=== PATIENT | male | born 1960 | race Caucasian/White ===

== ENCOUNTER 2021-03-09 11:06 | Emergency (ER) | payer OTHER ==
[2021-03-09] MEDS ORDERED: LIDOCAINE 4% PATCH ONE (12:23)
[2021-03-09] MEDS ORDERED: MORPHINE 4 MG/ML SYR ONE (12:23)
[2021-03-09 12:38] LABS: Urine Blood Negative (Negative); Urine Glucose Negative (Negative); Urine Protein Trace (Negative)
[2021-03-09 13:05] LABS: Urine Bacteria NONE SEEN /HPF (NONE SEEN); Urine RBC <5 /HPF (NONE SEEN)
--- NOTE | 2021-03-09 13:22 | RAD REPORT ---
EXAM DESCRIPTION: CTSpine Lumbar Wo Con03/09/2021 1:06 pm CLINICAL HISTORY: Back pain and radiculopathy COMPARISON: None TECHNIQUE: Computed axial tomography lumbar spine was obtained with coronal and sagittal reconstruct ion. All CT scans are performed using dose optimization technique as appropriate and may include automated exposure control or mA/KV adjustment according to patient size. FINDINGS: No fracture is seen. No dislocation is noted. A small right lateral disc bulge L2-3. Moderate disc bulge L2-3 more prominent right laterally results in narrowing of the right neural fora yvonne. Thecal sac measures 9.5 millimeters. Mild spondylosis L3-4. Facet hypertrophy L4-5. This in combination with disc bulge result in mild to moderate narrowing of n eural foramina. Thecal sac measures 9 millimeters. Mild spondylosis L5-S1. No bony lesion IMPRESSION: Negative for a lumbar fracture. Spondylosis resulting in mild to moderate foraminal stenosis L4-5. If patient's symptoms persist MRI lumbar spine would be recommended
--- NOTE | 2021-03-09 14:06 | EDPHYS ---
Physician Documentation [facility] Name: John Green Age: 60 yrs Sex: Male : 1960 Arrival Date: 03/09/2021 Time: 11:08 Bed 16 Private MD: ED Physician Joe Quintanilla HPI: 03/09 12:30 This 60 yrs old Male presents to ER via Wheelchair with complaints of Leg Pain - W/ cp Numbness. Historical: - Allergies: 11:36 No Known Allergies; vg1 - Home Meds: 11:36 citalopram oral [Active]; Lexapro Oral [Active]; vg1 - PMHx: 11:36 Hypertensive disorder; Depressive disorder; vg1 - PSHx: 11:36 None; vg1 - Immunization history:: Client reports having NOT received the Covid vaccine. - Social history:: Smoking status: Patient reports the use of cigarette tobacco products, smokes one pack cigarettes per day. ROS: 12:35 Back: Positive for pain at rest, pain with movement, of the left low back. cp 12:35 Eyes: Negative for injury, pain, redness, and discharge. cp 12:35 Constitutional: Negative for body aches, chills, fever, poor PO intake. 12:35 Cardiovascular: Negative for chest pain, edema, palpitations. 12:35 Respiratory: Negative for cough, shortness of breath, wheezing. Exam: 12:40 Constitutional: The patient appears in no acute distress, alert, awake, non-toxic, well cp developed, well nourished, uncomfortable. 12:40 Head/Face: Normocephalic, atraumatic. cp 12:40 Eyes: Periorbital structures: appear normal, Conjunctiva: normal, no exudate, no cp injection, Sclera: no appreciated abnormality, Lids and lashes: appear normal, bilaterally. 12:40 Chest/axilla: Inspection: normal. 12:40 Cardiovascular: Rate: normal. 12:40 Respiratory: the patient does not display signs of respiratory distress, Respirations: normal, no use of accessory muscles, no retractions, labored breathing, is not present. 12:40 Abdomen/GI: Inspection: abdomen appears normal, Palpation: abdomen is soft and non-tender, in all quadrants. 12:40 Back: pain, that is moderate, of the left low back and left mid back, ROM is painful, with all movement, vertebral tenderness, is not appreciated, muscle spasm, is not present, Straight leg raises: of both lower extremities does not illicit pain. 12:40 Neuro: Orientation: to person, place \T\ time. Mentation: is normal, Motor: moves all fours, strength is normal, Sensation: light touch is decreased in the left lateral upper leg, Deep tendon reflexes are 2+ (normal) in the right patellar, right Achilles, left patellar and left Achilles. Vital Signs: 11:35 BP 168 / 99; Pulse 94; Resp 16; Temp 98.5; Pulse Ox 100% ; Weight 84.82 kg; Height 5 vg1 ft. 8 in. (172.72 cm); Pain 10/10; 11:35 Body Mass Index 28.43 (84.82 kg, 172.72 cm) vg1 MDM: 11:52 Patient medically screened. cp 14:05 Data reviewed: vital signs, nurses notes, lab test result(s), radiologic studies, CT cp scan. 03/09 12:21 Order name: Urine Microscopic Only; Complete Time: 13:11 cp 03/09 13:11 Interpretation: Reviewed. 03/09 12:38 Order name: Urine Dipstick-Ancillary; Complete Time: 12:51 EDHI 03/09 13:11 Interpretation: Normal except: UPROT Trace. 03/09 12:21 Order name: Urine Dipstick-Ancillary (obtain specimen); Complete Time: 12:36 cp 03/09 12:52 Order name: CT Lumbar Spine Wo Con; Complete Time: 13:24 cp 03/09 13:25 Interpretation: Report reviewed. cp Administered Medications: 12:33 Drug: morphine 4 mg Route: IM; Site: left deltoid; aj1 12:33 Drug: Lidoderm Patch 5 % (700 mg/patch) 1 patches Route: Topical; Site: affected area; aj1 Disposition Summary: 03/09/21 14:06 Discharge Ordered Location: Home cp Problem: new cp Symptoms: have improved cp Condition: Stable cp Diagnosis - Lumbago with sciatica, left side cp Followup: cp - With: Private Physician - When: 2 - 3 days - Reason: Recheck today's complaints Discharge Instructions: - Discharge Summary Sheet cp - Sciatica cp Forms: - Medication Reconciliation Form cp - Thank You Letter cp - Antibiotic Education cp - Prescription Opioid Use cp Prescriptions: - Lidoderm 5 % Topical adhesive patch,medicated - apply 1 patch by TOPICAL route once daily; 1 box; Refills: 0, Product Selection cp Permitted - Cyclobenzaprine 10 mg Oral Tablet - take 1 tablet by ORAL route every 8 hours As needed; 30 tablet; Refills: 0, cp Product Selection Permitted - Tramadol 50 mg Oral Tablet - take 1 tablet by ORAL route every 8 hours as needed; 12 tablet; Refills: 0, cp Product Selection Permitted - Medrol (Shon) 4 mg Oral Tablets, Dose Pack - take 1 tablet by ORAL route as directed - follow package instructions; 1 cp packet; Refills: 0, Product Selection Permitted Signatures: Dispatcher [employer] Rosemary Romero, RN RN aj1 Be Verma PA PA cp Garcia, Victoria RN RN vg1
--- NOTE | 2021-03-09 14:06 | ER ---
Nurse's Notes [facility] Name: John Green Age: 60 yrs Sex: Male : 1960 Arrival Date: 03/09/2021 Time: 11:08 Bed 16 Private MD: Diagnosis: Lumbago with sciatica, left side Presentation: 03/09 11:35 Chief complaint: Patient states: For about two days pt states left lower back pain that vg1 radiates to Left hip an left thigh; states left calf 'feels numb'. Denies in injuries. Coronavirus screen: Vaccine status: Patient reports being unvaccinated. Client denies travel out of the [place] in the last 14 days. Ebola Screen: Patient negative for fever greater than or equal to 101.5 degrees Fahrenheit, and additional compatible Ebola Virus Disease symptoms. Initial Sepsis Screen: Does the patient meet any 2 criteria? No. Patient's initial sepsis screen is negative. Does the patient have a suspected source of infection? No. Patient's initial sepsis screen is negative. Risk Assessment: Do you want to hurt yourself or someone else? Patient reports no desire to harm self or others. Onset of symptoms was March 07, 2021. 11:35 Method Of Arrival: Wheelchair vg1 11:35 Acuity: GAURAV 3 vg1 Triage Assessment: 11:36 General: Appears in no apparent distress. uncomfortable, Behavior is calm, cooperative. vg1 Pain: Complains of pain in left low back and left leg. Historical: - Allergies: 11:36 No Known Allergies; vg1 - Home Meds: 11:36 citalopram oral [Active]; Lexapro Oral [Active]; vg1 - PMHx: 11:36 Hypertensive disorder; Depressive disorder; vg1 - PSHx: 11:36 None; vg1 - Immunization history:: Client reports having NOT received the Covid vaccine. - Social history:: Smoking status: Patient reports the use of cigarette tobacco products, smokes one pack cigarettes per day. Screenin:34 Abuse screen: Denies threats or abuse. Denies injuries from another. Nutritional aj1 screening: No deficits noted. Tuberculosis screening: No symptoms or risk factors identified. Assessment: 12:34 General: Appears in no apparent distress. uncomfortable, Behavior is calm, cooperative, aj1 appropriate for age. Pain: Complains of pain in left low back Pain radiates to left leg Pain currently is 10 out of 10 on a pain scale. Neuro: Level of Consciousness is awake, alert, obeys commands. Cardiovascular: Patient's skin is warm and dry. Respiratory: Airway is patent Respiratory effort is even, unlabored, Respiratory pattern is regular, symmetrical. GI: No signs and/or symptoms were reported involving the gastrointestinal system. : No signs and/or symptoms were reported regarding the genitourinary system. EENT: No signs and/or symptoms were reported regarding the EENT system. Derm: No signs and/or symptoms reported regarding the dermatologic system. Skin is pink, warm \T\ dry. normal. 14:21 Reassessment: Patient appears in no apparent distress at this time. Patient and/or vg1 family updated on plan of care and expected duration. Pain level reassessed. Patient is alert, oriented x 3, equal unlabored respirations, skin warm/dry/pink. Vital Signs: 11:35 BP 168 / 99; Pulse 94; Resp 16; Temp 98.5; Pulse Ox 100% ; Weight 84.82 kg; Height 5 vg1 ft. 8 in. (172.72 cm); Pain 10/10; 11:35 Body Mass Index 28.43 (84.82 kg, 172.72 cm) [facility] ED Course: 11:08 Patient arrived in ED. ds1 11:36 Triage completed. vg1 11:36 Arm band placed on. vg1 11:47 Be Verma PA is PHCP. cp 11:47 Joe Quintanilla MD is Attending Physician. cp 12:08 Rosemary Perez, SOCRATES is Primary Nurse. aj1 12:34 Patient has correct armband on for positive identification. Bed in low position. Call aj1 light in reach. Family at bedside. 12:34 No provider procedures requiring assistance completed. aj1 12:41 Pulse ox on. NIBP on. mh5 12:41 Urine Microscopic Only Sent. mh5 12:41 Urine collected: clean catch specimen, clear. mh5 13:06 CT Lumbar Spine Wo Con In Process Unspecified. EDMS 14:22 Patient did not have IV access during this emergency room visit. vg1 Administered Medications: 12:33 Drug: morphine 4 mg Route: IM; Site: left deltoid; aj1 12:33 Drug: Lidoderm Patch 5 % (700 mg/patch) 1 patches Route: Topical; Site: affected area; aj1 Outcome: 14:06 Discharge ordered by . cp 14:21 Discharged to home via wheelchair, with family. vg1 14:21 Condition: stable 14:21 Discharge instructions given to patient, Instructed on discharge instructions, follow up and referral plans. medication usage, Demonstrated understanding of instructions, follow-up care, medications, Prescriptions given X 4. 14:22 Patient left the ED. vg1 Signatures: Dispatcher [employer] EDRosemary Leiva, RN RN aj1 Gale Miller ds1 Be Verma PA PA cp Martinez, Maria Dori San, RN RN vg1
[2021-03-09 14:27] VITALS: BP 168/99; TEMP 98.5; O2SAT 100
== END 2021-03-09 14:22 | disposition home or self-care (01) ==
LOC: ER 11:06
DX: M54.42 Lumbago with sciatica, left side (principal); I10 Essential (primary) hypertension; F32.A Depression, unspecified; F17.210 Nicotine dependence, cigarettes, uncomplicated
CPT/HCPCS: 72131; 81003; 81015; 96372; 99284

== ENCOUNTER 2024-05-31 10:36 | Emergency (ER) | payer OTHER ==
[2024-05-31 11:45] LABS: Absolute Basophils 0.1 K/uL (0-0.5); Absolute Lymphocytes (CBC) 1.3 K/uL (0.7-4.9); Absolute Monocytes 0.6 K/uL (0.1-1.3); Absolute Neutrophil 6.6 K/uL (1.8-8.0); Basophils % 1.3 % (0-1.3); Eosinophils % 0.4 % (0-4.4); Hematocrit 29.9 % (39.6-49.0); Hemoglobin 10.2 g/dL (13.6-17.9); Lymphocytes % 15.4 % (15.3-44.8); MCH 33.9 pg (27.0-35.0); MCHC 34.2 g/dL (32.0-36.0); MCV 98.9 fL (80-100); MPV 8.1 fL (7.6-11.3); Neutrophils % 75.9 % (41.7-73.7); Nucleated Red Blood Cells % 0.1 % (0-0); Platelets 241 thou/uL (152-406); RBC Red Blood Cell Count 3.02 M/uL (4.33-5.43); Red Cell Distribution Width 20.2 % (12.1-15.2)
[2024-05-31 12:01] LABS: Albumin 2.5 g/dL (3.4-5.0); Albumin/Globulin Ratio 0.7 (1.1-1.8); Anion Gap 7.7 mEq/L (5.0-15.0); Bilirubin Total 1.5 mg/dL (0.2-1.0); Globulin 3.6 g/dL (2.3-3.5); Potassium 3.7 mEq/L (3.5-5.1); Protein, Total 6.1 g/dL (6.4-8.2)
[2024-05-31] MEDS ORDERED: FUROSEMIDE 40 MG/4 ML VIAL ONE (12:12)
--- NOTE | 2024-05-31 12:14 | EDPHYS ---
Physician Documentation [facility] Name: John Green Age: 63 yrs Sex: Male : 1960 Arrival Date: 05/31/2024 Time: 10:36 Bed 17 Private MD: ED Physician Octaviano Katz HPI: 05/31 11:03 This 63 yrs old Male presents to ER via Unassigned with complaints of Body ec2 swelling. 11:03 Patient with known liver disease, arrives today with lower extremity edema and ec2 generalized anasarca. Patient reports that he was told that he had alcoholic hepatitis, supposed to follow-up with GI. Has a plan to follow-up with primary care in 3 days. Reports that he had noticed lower extremity edema has been progressively worsening. Is not on a diuretic currently.. Historical: - Allergies: 11:24 No Known Allergies; hb - Home Meds: 11:24 losartan-hydrochlorothiazide oral [Active]; Lexapro Oral [Active]; hb - PMHx: 11:24 depressive disorder; Hypertensive disorder; hb 11:24 Alcoholic Cirrhosis; hb - Immunization history:: Adult Immunizations up to date. - Infectious Disease History:: Denies. - Social history:: Smoking status: Patient reports the use of cigarette tobacco products. ROS: 11:03 Constitutional: as per hpi ec2 Exam: 11:03 Constitutional: GEN: NAD Head: atraumatic Eyes: EOMI Ears: External ears are ec2 normal. CV: regular rate, 3+ lower extremity edema extending from the foot to the proximal tibia LUNGS: no respiratory distress ABD: non-distended SKIN: no evidence of rashes MSK: no evidence of trauma Vital Signs: 11:22 BP 160 / 107; Pulse 66; Resp 16; Temp 97.8; Pulse Ox 100% ; Weight 77.11 kg; Height 5 hb ft. 9 in. ; Pain 3/10; 12:15 BP 175 / 94; Pulse 78; Resp 16; Pulse Ox 98% ; mb9 11:22 Body Mass Index 25.10 (77.11 kg, 175.26 cm) hb 11:22 Pain Scale: Adult hb MDM: 10:55 Medical Screening Exam initiated ec2 11:03 Data reviewed: vital signs, nurses notes. ED course: Patient arrives today for ec2 anasarca. Examination yields cardiovascular findings as above. Will obtain lab work. Suspect sequela of his known liver disease. Patient without any abdominal pain to indicate SBP and patient otherwise nontoxic as well.. 11:05 ED course: Additionally considered volume overload secondary to CKD, CHF. ec2 12:13 ED course: CBC with slight anemia noted. Metabolic profile shows appropriate ec2 electrolytes, marked liver enzyme abnormality, BNP elevated at 970. Patient with outpatient follow-up with GI and PCP, will start the patient on Lasix for diuresis given the patient's volume overload, will discharge home. Turn precautions given. Patient does not require emergent admission for liver evaluation given he is already been evaluated for this, does not require admission for diuresis given patient is not in any respiratory distress. 05/31 11:03 Order name: CBC with Diff ec2 05/31 11:03 Order name: CMP; Complete Time: 12:12 ec2 05/31 11:05 Order name: BNP; Complete Time: 12:12 ec2 05/31 11:03 Order name: IV; Complete Time: 11:27 ec2 Administered Medications: 12:15 Drug: Furosemide IVP 40 mg IVP once; give over 2 minutes Route: IVP; Site: left forearm;mb9 12:31 Follow up: Response: No adverse reaction mb9 Disposition Summary: 05/31/24 12:14 Discharge Ordered Condition: Stable ec2 Diagnosis - Liver Disease, Volume Overload ec2 Followup: ec2 - With: Private Physician - When: - Reason: Re-evaluation by your physician Discharge Instructions: - Discharge Summary Sheet ec2 - Lymphedema ec2 - Alcoholic Liver Disease, [id number] ec2 Forms: - Medication Reconciliation Form ec2 - Antibiotic Education ec2 - Prescription Opioid Use ec2 - Patient Portal Instructions ec2 - Leadership Thank You Letter ec2 Prescriptions: - Lasix 40 mg Oral tablet - take 1 tablet ORAL route once daily for 30 days; 14 tablet; Refills: 0, Product ec2 Selection Permitted Signatures: Dispatcher [employer] Farnaz Forbes RN RN hb Wilkerson, Mary Beth RN RN mb9 Octaviano Katz MD MD ec2 Corrections: (The following items were deleted from the chart) : 11:24 PMHx: Alcoholic Cirrhosis (Hypertensive disorder); hb hb
--- NOTE | 2024-05-31 12:14 | ER ---
Nurse's Notes [facility] Name: John Green Age: 63 yrs Sex: Male : 1960 Arrival Date: 05/31/2024 Time: 10:36 Bed 17 [facility] MD: Diagnosis: Liver Disease, Volume Overload Presentation: 05/31 11:22 Chief complaint: Swelling all over and yellowing of skin over the last 2 weeks, worse hb today. Hx of alcoholic cirrhosis, last ETOH was 1 week ago. Coronavirus screen: At this time, the client does not indicate any symptoms associated with coronavirus-19. Ebola Screen: No symptoms or risks identified at this time. Initial Sepsis Screen: Does the patient meet any 2 criteria? No. Patient's initial sepsis screen is negative. Does the patient have a suspected source of infection? No. Patient's initial sepsis screen is negative. Risk Assessment: Do you want to hurt yourself or someone else?. Onset of symptoms was May 31, 2024. 11:22 Method Of Arrival: Ambulatory hb 11:22 Acuity: GAURAV 3 hb Historical: - Allergies: 11:24 No Known Allergies; hb - Home Meds: 11:24 losartan-hydrochlorothiazide oral [Active]; Lexapro Oral [Active]; hb - PMHx: 11:24 depressive disorder; Hypertensive disorder; hb 11:24 Alcoholic Cirrhosis; hb - Immunization history:: Adult Immunizations up to date. - Infectious Disease History:: Denies. - Social history:: Smoking status: Patient reports the use of cigarette tobacco products. Screenin:27 [facility] ED Fall Risk Assessment (Adult) History of falling in the last 3 months, mb9 including since admission No falls in past 3 months (0 pts) Confusion or Disorientation No (0 pts) Intoxicated or Sedated No (0 pts) Impaired Gait No (0 pts) Mobility Assist Device Used No (0 pt) Altered Elimination No (0 pt) Score/Fall Risk Level 0 - 2 = Low Risk Oriented to surroundings, Maintained a safe environment, Educated pt \T\ family on fall prevention, incl call for assistance when getting out of bed. Abuse screen: Denies threats or abuse. Nutritional screening: No deficits noted. Tuberculosis screening: No symptoms or risk factors identified. Assessment: 11:30 General: Appears in no apparent distress. Behavior is calm, cooperative. Pain: mb9 Complains of pain in right leg and left leg Quality of pain is described as dull. Neuro: Swain Agitation-Sedation Scale (RASS): 0 - Alert and Calm Level of Consciousness is awake, alert, obeys commands, Oriented to person, place, time, situation, Appropriate for age. Cardiovascular: Heart tones S1 S2 present Pulses are 1+ in right posterior tibial artery, right dorsalis pedis artery, left posterior tibial artery and left dorsalis pedis artery Edema is 2+ to left ankle and right ankle. Respiratory: Airway is patent Respiratory effort is even, unlabored, Respiratory pattern is regular, symmetrical. GI: Abdomen is round non-distended. : No signs and/or symptoms were reported regarding the genitourinary system. EENT: jaundice in bilateral eyes. Derm: Skin is pink, warm \T\ dry. Musculoskeletal: Range of motion: intact in all extremities. 12:31 Reassessment: No changes from previously documented assessment. Patient and/or family mb9 updated on plan of care and expected duration. Pain level reassessed. Patient is alert, oriented x 3, equal unlabored respirations, skin warm/dry/pink. Vital Signs: 11:22 BP 160 / 107; Pulse 66; Resp 16; Temp 97.8; Pulse Ox 100% ; Weight 77.11 kg; Height 5 hb ft. 9 in. ; Pain 3/10; 12:15 BP 175 / 94; Pulse 78; Resp 16; Pulse Ox 98% ; mb9 11:22 Body Mass Index 25.10 (77.11 kg, 175.26 cm) hb 11:22 Pain Scale: Adult hb ED Course: 10:44 Patient arrived in ED. ra3 10:46 Octaviano Katz MD is Attending Physician. ec2 11:24 Triage completed. hb 11:25 Ariadna Bennett RN is Primary Nurse. mb9 11:25 Arm band placed on. hb 11:27 Placed in gown. Bed in low position. Call light in reach. Side rails up X 1. Provided mb9 Education on: press call light if needing anything. Client placed on continuous cardiac and pulse oximetry monitoring. NIBP monitoring applied. video game script writer on. 11:41 Initial lab(s) drawn, by me, sent to lab. Inserted saline lock: 20 gauge in left ty forearm, using aseptic technique. Blood collected. Flushed with 10 mL NS. 12:15 No provider procedures requiring assistance completed. IV discontinued, intact, mb9 bleeding controlled, No redness/swelling at site. Pressure dressing applied. Administered Medications: 12:15 Drug: Furosemide IVP 40 mg IVP once; give over 2 minutes Route: IVP; Site: left forearm;mb9 12:31 Follow up: Response: No adverse reaction mb9 Medication: 11:27 VIS not applicable for this client. mb9 Outcome: 12:14 Discharge ordered by . ec2 12:31 Discharged to home ambulatory, mb9 12:31 Condition: stable 12:31 Discharge instructions given to patient, Instructed on discharge instructions, follow up and referral plans. Demonstrated understanding of instructions, follow-up care, medications, Prescriptions given X 1, 12:31 Patient left the ED. mb9 Signatures: Farnaz Salcido RN RN hb Ariadna Bennett RN RN mb9 Octaviano Katz MD MD ec2 Vivian Suarez ra3 Asif Aguilar ty Corrections: (The following items were deleted from the chart) 11:25 11:24 PMHx: Alcoholic Cirrhosis (Hypertensive disorder); hb hb
[2024-05-31 12:49] VITALS: BP 175/94; O2SAT 98
[2024-05-31 13:09] LABS: Anisocytosis 1+; Blood Morphology Comment NOTED (NOT SEEN); Platelet Estimate ADEQ; White Blood Cell Scan OK (OK)
== END 2024-05-31 12:31 | disposition home or self-care (01) ==
LOC: ER 10:36
DX: E87.70 Fluid overload, unspecified (principal); K76.9 Liver disease, unspecified; K70.30 Alcoholic cirrhosis of liver without ascites; I10 Essential (primary) hypertension; Z72.0 Tobacco use
CPT/HCPCS: 85025; 36415; 80053; 83880; J1940; 96374; 99285

== ENCOUNTER 2024-06-08 14:58 | Emergency (ER) | payer OTHER ==
--- OUTSIDE RECORDS SUMMARY | 2024-06-08 15:01 | XMS REPORT | Continuity of Care Document ---
Author Name Unknown Address [address] [place] [address] [facility] thconnect Address [address] [place] [address] Care Team Providers Care Materials Engineering Technician Name Role Phone JOSE PLASENCIA Primary Care Physician Unavailab le RADIOLOGY Attending Clinician Unavailable Radiology Attending Clinician Unavailable JOSE PLASENCIA Admitting Clinician Unavailable Payers Payer Name Policy Type Policy Number Effective Date Expirati on Date Source [employer] EPO [id number] 2024 00:00:00 Allergies, Adverse Reactions, Alerts Allergy Name Allergy Type Status Severity Reaction(s) Onset Date Inactive Date Treating Clinician Comments Source NO KNOWN ALLERGIE S Drug Class Active [facility] Social History Social Habit Start Date Stop Date Quantity Comments Source Sexual orientation U [facility] Sex assigned at 1960 00:00:00 1960 00:00:00 [facility] Smoking Status Start Date Stop Date Source Tobacco smoking consumption unknown [facility] Procedures Procedure Date / Time Performed Performing Clinicia n Source XR CHEST 2 VW 2024-06-03 22:03:42 Jose Plasencia [facility] Encounters Start Date/Time End Date/Time Encounter Type Admission Type Attending Clinicians Care Facility Care Department Encounter ID Source 2024-06-03 15:52:51 2024-06-03 23:59:00 Outpatient R RADIOLOGY [facility] [id number] [facility] 2024-06-03 15:52:51 2024-06-03 23:59:00 Hospital Encounter Radiology Radiology [facility] [id number] [facility] Results Test Description Test Time Test Comments Results Resul t Comments Source XR Chest 2 vw 2024-05-16 9 22:08:11 HISTORY: Lower extremity edema. TECHNIQUE: PA and lateral views of the chest are obtained. No prior cheststudy available for comparison. FINDINGS: No acute pneumonia detected. No pneumothorax or pleural effusionor pulmonary congestion. Cardiothoracic ratio of approximately 14/32.5 cmis consistent with normal cardiac size. CONCLUSIONS: No signs of acute cardiopulmonary disease. [facility]
--- NOTE | 2024-06-08 16:35 | RAD REPORT ---
Extremity Venous Uni Ltd CLINICAL INDICATION: Male, 63 years old.LLE Dvt eval TECHNIQUE: Complete duplex sonography of the lower extremity veins was performed of the affected limb . The examination included compression for vein patency, color Doppler imaging and flow augmentation in response to distal compression of the distal external iliac, common femoral, femoral, popliteal, peroneal, tibial and great saphenous veins. [id number]. COMPARISON: No prior exams FINDINGS: Duplex sonography imaging demonstrates all deep veins examined to be fully compressible with spontane ous, phasic and augmented flow in the affected limb. IMPRESSION: No evidence of deep venous thrombosis in the left lower extremity.
[2024-06-08 17:57] LABS: Absolute Basophils 0.2 K/uL (0-0.5); Absolute Eosinophils 0.2 K/uL (0-0.5); Absolute Lymphocytes (CBC) 2.1 K/uL (0.7-4.9); Absolute Monocytes 1.2 K/uL (0.1-1.3); Absolute Neutrophil 7.1 K/uL (1.8-8.0); Basophils % 1.5 % (0-1.3); Eosinophils % 1.9 % (0-4.4); Hematocrit 25.9 % (39.6-49.0); Hemoglobin 8.9 g/dL (13.6-17.9); Lymphocytes % 19.6 % (15.3-44.8); MCH 33.8 pg (27.0-35.0); MCHC 34.2 g/dL (32.0-36.0); MCV 98.8 fL (80-100); MPV 7.4 fL (7.6-11.3); Monocytes % 10.9 % (3.3-12.3); Neutrophils % 66.1 % (41.7-73.7); Platelets 358 thou/uL (152-406); RBC Red Blood Cell Count 2.63 M/uL (4.33-5.43); Red Cell Distribution Width 18.9 % (12.1-15.2)
[2024-06-08 18:15] LABS: Anion Gap 5.7 mEq/L (5.0-15.0); Potassium 3.7 mEq/L (3.5-5.1)
--- NOTE | 2024-06-08 18:17 | ER ---
Nurse's Notes [facility] Name: John Green Age: 63 yrs Sex: Male : 1960 Arrival Date: 06/08/2024 Time: 14:58 Bed 25 Private MD: Diagnosis: Cellulitis of left lower limb Presentation: 06/08 15:45 Chief complaint: Patient states: he was recently diagnosed with HEP C, and started ap3 diuretics. patient complains of lower extremity swelling in both legs, but redness and warmth to the left leg. patient states when he is up and moving around the legs do not hurt, but if he stops for a while then moves again it hurts. Patient currently rates his pain as a 4/10 on the pain scale. Coronavirus screen: At this time, the client does not indicate any symptoms associated with coronavirus-19. Ebola Screen: No symptoms or risks identified at this time. Initial Sepsis Screen: Does the patient meet any 2 criteria? No. Patient's initial sepsis screen is negative. Does the patient have a suspected source of infection? No. Patient's initial sepsis screen is negative. Risk Assessment: Do you want to hurt yourself or someone else? Patient reports no desire to harm self or others. Onset of symptoms is unknown. 15:45 Method Of Arrival: Ambulatory ap3 15:45 Acuity: GAURAV 3 ap3 Triage Assessment: 15:48 General: Appears in no apparent distress. Behavior is calm, cooperative, appropriate ap3 for age. Pain: Complains of pain in right leg and left leg Pain currently is 4 out of 10 on a pain scale. at worst was 8 out of 10 on a pain scale. Pain began gradually. Neuro: Level of Consciousness is awake, alert, obeys commands, Oriented to person, place, time, situation, Appropriate for age. Cardiovascular: Patient's skin is warm and dry. Respiratory: Airway is patent Respiratory effort is even, unlabored, Respiratory pattern is regular, symmetrical. 15:48 Musculoskeletal: Swelling present in left leg. ap3 Historical: - Allergies: 15:47 No Known Allergies; ap3 - PMHx: 15:47 Alcoholic Cirrhosis; depressive disorder; Hypertensive disorder; HEP C; ap3 - Immunization history:: Client reports having NOT received the Covid vaccine. Flu vaccine is not up to date. - Infectious Disease History:: Denies. - Social history:: Smoking status: Patient reports the use of cigarette tobacco products, smokes 1.5 packs per day. Screenin:49 [facility] ED Fall Risk Assessment (Adult) History of falling in the last 3 months, ap3 including since admission Yes- single mechanical fall (1 pt) Confusion or Disorientation No (0 pts) Intoxicated or Sedated No (0 pts) Impaired Gait No (0 pts) Mobility Assist Device Used No (0 pt) Altered Elimination No (0 pt) Score/Fall Risk Level 0 - 2 = Low Risk Oriented to surroundings, Maintained a safe environment, Educated pt \T\ family on fall prevention, incl call for assistance when getting out of bed, Assessed \T\ reinforced patient's understanding of fall precautions, Hourly rounding (assess needs \T\ fall precautionary measures) done, Used ambulatory aids as needed (educated on \T\ assisted with). Abuse screen: Denies threats or abuse. Nutritional screening: No deficits noted. Tuberculosis screening: No symptoms or risk factors identified. Assessment: 17:15 Reassessment: Patient appears in no apparent distress at this time. Patient and/or jb4 family updated on plan of care and expected duration. Pain level reassessed. Patient is alert, oriented x 3, equal unlabored respirations, skin warm/dry/pink. 18:50 Reassessment: Patient appears in no apparent distress at this time. Patient and/or jb4 family updated on plan of care and expected duration. Pain level reassessed. Patient is alert, oriented x 3, equal unlabored respirations, skin warm/dry/pink. Vital Signs: 15:45 BP 138 / 71; Pulse 87; Resp 17; Temp 98.6; Pulse Ox 98% on R/A; Weight 79.38 kg; Height ap3 5 ft. 9 in. ; Pain 4/10; 15:45 Body Mass Index 25.84 (79.38 kg, 175.26 cm) ap3 15:45 Pain Scale: Adult ap3 ED Course: 15:01 Patient arrived in ED. al6 15:09 Octaviano Katz MD is Attending Physician. ec2 15:47 Triage completed. ap3 15:49 Arm band placed on left wrist. ap3 16:25 Extremity Venous Uni Ltd US In Process Unspecified. EDMS 18:51 Patient has correct armband on for positive identification. Bed in low position. Call jb4 light in reach. Side rails up X 1. Provided Education on: discharge instructions.. 18:51 No provider procedures requiring assistance completed. IV discontinued, intact, jb4 bleeding controlled, No redness/swelling at site. Pressure dressing applied. Administered Medications: 18:43 Drug: Trimethoprim-Sulfamethoxazole PO (160 mg-800 mg (DS) 1 tablet PO once Route: PO; jb4 18:49 Follow up: Response: Medication administered at discharge. jb4 18:43 Drug: Cephalexin PO 500 mg PO once Route: PO; jb4 18:50 Follow up: Response: Medication administered at discharge. jb4 Medication: 17:15 VIS not applicable for this client. jb4 Outcome: 18:17 Discharge ordered by . ec2 18:51 Discharged to home ambulatory, jb4 18:51 Condition: stable 18:51 Discharge instructions given to patient, Instructed on discharge instructions, follow up and referral plans. medication usage, Demonstrated understanding of instructions, follow-up care, medications, Prescriptions given X 2, 18:52 Patient left the ED. jb4 Signatures: Dispatcher [employer] EDOmar Benjamin RN RN jb4 Klaudia Oden RN RN ap3 Octaviano Katz MD MD ec2 Isabel De La Cruz6
--- NOTE | 2024-06-08 18:17 | EDPHYS ---
Physician Documentation [facility] Name: John Green Age: 63 yrs Sex: Male : 1960 Arrival Date: 06/08/2024 Time: 14:58 Bed 25 Private MD: ED Physician Octaviano Katz HPI: 06/08 17:19 This 63 yrs old Male presents to ER via Ambulatory with complaints of Leg ec2 Swelling - both legs swelling and red. 17:19 Patient arrives today for evaluation of left lower extremity redness and edema. Patient ec2 reports that he was recently seen here, diagnosed with volume overload, subsequently is having left lower extremity isolated redness and swelling. Reports the right lower extremity has since improved. Reports no fevers or chills, no nausea or vomiting.. Historical: - Allergies: 15:47 No Known Allergies; ap3 - PMHx: 15:47 Alcoholic Cirrhosis; depressive disorder; Hypertensive disorder; HEP C; ap3 - Immunization history:: Client reports having NOT received the Covid vaccine. Flu vaccine is not up to date. - Infectious Disease History:: Denies. - Social history:: Smoking status: Patient reports the use of cigarette tobacco products, smokes 1.5 packs per day. ROS: 17:19 Constitutional: as per hpi ec2 Exam: 17:19 Constitutional: GEN: NAD Head: atraumatic Eyes: EOMI Ears: External ears are ec2 normal. CV: regular rate LUNGS: no respiratory distress ABD: non-distended SKIN: Left lower extremity with erythema, edema noted compared to right. MSK: no evidence of trauma Vital Signs: 15:45 BP 138 / 71; Pulse 87; Resp 17; Temp 98.6; Pulse Ox 98% on R/A; Weight 79.38 kg; Height ap3 5 ft. 9 in. ; Pain 4/10; 15:45 Body Mass Index 25.84 (79.38 kg, 175.26 cm) ap3 15:45 Pain Scale: Adult ap3 MDM: 16:01 Medical Screening Exam initiated ec2 17:20 Data reviewed: vital signs, nurses notes. ED course: Patient arrives today for left ec2 lower extremity redness. Examination is revealing for skin findings as above. Will obtain lab work and ultrasonography. DDx include processes such as cellulitis, volume overload, DVT.. 17:21 ED course: DVT ultrasound negative.. ec2 18:17 ED course: DVT ultrasound negative. Lab work is unremarkable. Will start the patient ec2 antibiotics for cellulitis. Will discharge home. Return precautions given.. 06/08 16:00 Order name: CBC with Diff; Complete Time: 18:11 ec2 06/08 16:00 Order name: BMP; Complete Time: 18:16 ec2 06/08 16:00 Order name: BNP; Complete Time: 18:16 ec2 06/08 16:00 Order name: Extremity Venous Uni Ltd US; Complete Time: 17:21 ec2 06/08 16:00 Order name: IV; Complete Time: 17:55 ec2 Administered Medications: 18:43 Drug: Trimethoprim-Sulfamethoxazole PO (160 mg-800 mg (DS) 1 tablet PO once Route: PO; jb4 18:49 Follow up: Response: Medication administered at discharge. jb4 18:43 Drug: Cephalexin PO 500 mg PO once Route: PO; jb4 18:50 Follow up: Response: Medication administered at discharge. jb4 Disposition Summary: 06/08/24 18:17 Discharge Ordered Notes: Location: Home ec2 Condition: Stable ec2 Diagnosis - Cellulitis of left lower limb ec2 Followup: ec2 - With: Private Physician - When: - Reason: Recheck today's complaints Discharge Instructions: - Discharge Summary Sheet ec2 - Cellulitis, Adult ec2 Forms: - Medication Reconciliation Form ec2 - Antibiotic Education ec2 - Prescription Opioid Use ec2 - Patient Portal Instructions ec2 - Leadership Thank You Letter ec2 Prescriptions: - Cephalexin 500 mg Oral Capsule - take 1 capsule ORAL route every 6 hours for 10 days; 40 capsule; Refills: 0, ec2 Product Selection Permitted - Bactrim DS 800-160 mg Oral Tablet - take 1 tablet ORAL route every 12 hours for 7 days; 14 tablet; Refills: 0, ec2 Product Selection Permitted Signatures: Dispatcher [employer] Omar Roper RN RN jb4 Klaudia Oden RN RN ap3 Octaviano Katz MD MD ec2 Corrections: (The following items were deleted from the chart) 16:01 16:01 CBC+H.LAB.BRZ ordered. EDMS EDMS 16:01 16:01 BASIC METABOLIC PANEL+C.LAB.BRZ ordered. EDMS EDMS 16:01 16:01 PROBNP+C.LAB.BRZ ordered. EDMS EDMS 16:01 16:01 Extremity Venous Uni Ltd+US.RAD.BRZ ordered. EDMS EDMS
[2024-06-08] MEDS ORDERED: SMZ./TMP. 800/160 MG TABLET ONE (18:41)
[2024-06-08] MEDS ORDERED: CEPHALEXIN 250 MG CAP ONE (18:41)
[2024-06-08 19:19] VITALS: BP 138/71; TEMP 98.6; O2SAT 98
== END 2024-06-08 18:52 | disposition home or self-care (01) ==
LOC: ER 14:58
DX: L03.116 Cellulitis of left lower limb (principal); F17.210 Nicotine dependence, cigarettes, uncomplicated
CPT/HCPCS: 36415; 80048; 83880; 85025; 93971; 99283

== ENCOUNTER 2024-06-17 15:11 | Emergency (ER) | payer OTHER ==
--- OUTSIDE RECORDS SUMMARY | 2024-06-17 15:14 | XMS REPORT | Continuity of Care Document ---
Author Name Unknown Address [address] [place] [address] [facility] Address [address] [facility] [address] [place] [address] Care Team Providers Care Budget Controller Name Role Phone JOSE PLASENCIA Primary Care Physician Unavailab le RADIOLOGY Attending Clinician Unavailable Radiology Attending Clinician Unavailable JOSE PLASENCIA Admitting Clinician Unavailable Payers Payer Name Policy Type Policy Number Effective Date Expirati on Date Source [employer] EPO [id number] 2024 00:00:00 Allergies, Adverse Reactions, Alerts Allergy Name Allergy Type Status Severity Reaction(s) Onset Date Inactive Date Treating Clinician Comments Source NO KNOWN ALLERGIE S Drug Class Active [facility] Social History Social Habit Start Date Stop Date Quantity Comments Source Sexual orientation [facility] Sex assigned at 1960 00:00:00 1960 00:00:00 [facility] Smoking Status Start Date Stop Date Source Tobacco smoking consumption unknown [facility] Procedures Procedure Date / Time Performed Performing Clinicia n Source XR CHEST 2 VW 2024-06-03 22:03:42 Jose Plasencia [facility] Encounters Start Date/Time End Date/Time Encounter Type Admission Type Attending Clinicians Care Facility Care Department Encounter ID Source 2024-06-03 15:52:51 2024-06-03 23:59:00 Outpatient R RADIOLOGY [facility] [id number] [facility] 2024-06-03 15:52:51 2024-06-03 23:59:00 Hospital Encounter Radiology Radiology [facility] [id number] [facility] Results Test Description Test Time Test Comments [...] CONCLUSIONS: No signs of acute cardiopulmonary disease. [facility]
[2024-06-17 17:56] LABS: Absolute Basophils 0.1 K/uL (0-0.5); Absolute Eosinophils 0.5 K/uL (0-0.5); Absolute Lymphocytes (CBC) 2.5 K/uL (0.7-4.9); Absolute Monocytes 0.6 K/uL (0.1-1.3); Basophils % 1.1 % (0-1.3); Eosinophils % 5.9 % (0-4.4); Hematocrit 28.3 % (39.6-49.0); Hemoglobin 9.9 g/dL (13.6-17.9); Lymphocytes % 32.9 % (15.3-44.8); MCH 33.6 pg (27.0-35.0); MCHC 34.9 g/dL (32.0-36.0); MCV 96.1 fL (80-100); MPV 6.9 fL (7.6-11.3); Monocytes % 7.9 % (3.3-12.3); Neutrophils % 52.2 % (41.7-73.7); Platelets 506 thou/uL (152-406); RBC Red Blood Cell Count 2.95 M/uL (4.33-5.43); Red Cell Distribution Width 17.9 % (12.1-15.2)
[2024-06-17 18:15] LABS: Albumin 3.5 g/dL (3.4-5.0); Albumin/Globulin Ratio 0.8 (1.1-1.8); Anion Gap 6.9 mEq/L (5.0-15.0); Bilirubin Total 0.8 mg/dL (0.2-1.0); Globulin 4.2 g/dL (2.3-3.5); Potassium 3.9 mEq/L (3.5-5.1); Protein, Total 7.7 g/dL (6.4-8.2)
--- NOTE | 2024-06-17 18:25 | EDPHYS ---
Physician Documentation [facility] Name: John Green Age: 63 yrs Sex: Male : 1960 Arrival Date: 06/17/2024 Time: 15:11 Bed DX4 Private MD: ED Physician Be Hobbs HPI: 06/17 15:51 This 63 yrs old Male presents to ER via Unassigned with complaints of Abnormal Lab kb Results. 15:51 Pt is a 63 year old male who presents for low hemoglobin. States he has had generalized kb weakness and dizzy spells intermittently over the last week, worse with exertion. Dr Montez checked labs 06/08 and hemoglobin was 8.9 then again on the and it was 8.3. Pt was told to come here today for repeat hgb. . Historical: - Allergies: 15:56 No Known Allergies; cm10 - PMHx: 15:56 Alcoholic Cirrhosis; depressive disorder; HEP C; Hypertensive disorder; cm10 - Immunization history:: Adult Immunizations up to date. - Infectious Disease History:: Denies. - Social history:: Smoking status: Patient reports the use of cigarette tobacco products, smokes one pack cigarettes per day. ROS: 15:53 Constitutional: As per HPI kb Exam: 19:16 Constitutional: This is a well developed, well nourished patient who is awake, alert, kb and in no acute distress. Head/Face: Normocephalic, atraumatic. ENT: Moist Mucous membranes Cardiovascular: Regular rate Respiratory: Respirations even and unlabored. No increased work of breathing. Talking in full sentences Abdomen/GI: Soft, non-tender. No distention Skin: Warm, dry with normal turgor. Normal color. MS/ Extremity: Pulses equal, no cyanosis. Neurovascular intact. Full, normal range of motion. Neuro: Awake and alert, GCS 15, oriented to person, place, time, and situation. Vital Signs: 15:55 BP 132 / 77; Pulse 68; Resp 15; Temp 98; Pulse Ox 100% on R/A; Weight 79.38 kg; Height cm10 5 ft. 9 in. ; Pain 0/10; 15:55 Body Mass Index 25.84 (79.38 kg, 175.26 cm) cm10 15:55 Pain Scale: Adult cm10 MDM: 15:16 Medical Screening Exam initiated kb 19:16 Differential Diagnosis anemia, abnormal electrolytes. Data reviewed: vital signs, kb nurses notes. Historians other than the Patient: Spouse/Significant Other: . Counseling: I had a detailed discussion with the patient and/or guardian regarding the historical points, exam findings, and any diagnostic results supporting the discharge/admit diagnosis, lab results, the need for outpatient follow up, a family practitioner, to return to the emergency department if symptoms worsen or persist or if there are any questions or concerns that arise at home. ED course: Hgb improved 9.9. Pt denies any bleeding. Will follow up with GI. 06/17 15:57 Order name: CBC with Diff; Complete Time: 18:05 kb 06/17 15:57 Order name: CMP; Complete Time: 18:19 kb 06/17 15:57 Order name: IV Saline Lock; Complete Time: 17:49 kb 06/17 15:57 Order name: Labs collected and sent; Complete Time: 17:49 kb Administered Medications: 18:55 Not Given (Patient Refused): ns 0.9% 1000 ml IV at 1 bolus Per protocol; to be given as ll1 a bolus over 60 minutes Disposition Summary: 06/17/24 18:24 Discharge Ordered Notes: Location: Home kb Condition: Stable kb Diagnosis - Anemia, unspecified kb Followup: kb - With: Emergency Department - When: As needed - Reason: Worsening of condition Followup: kb - With: Private Physician - When: 2 - 3 days - Reason: Recheck today's complaints, Continuance of care, Re-evaluation by your physician Discharge Instructions: - Discharge Summary Sheet kb - Anemia kb Forms: - Medication Reconciliation Form kb - Antibiotic Education kb - Prescription Opioid Use kb - Patient Portal Instructions kb - Leadership Thank You Letter kb Signatures: Dispatcher [employer] Brissa Lubin, MICK-C DIPPER [employer] BAKER-Tita Jacobsen, RN RN cm10 Sis Combs RN ll1 Corrections: (The following items were deleted from the chart) 15:58 15:51 Pt is a 63 year old male who presents for low hemoglobin. States he has had kb generalized weakness and dizzy spells intermittently over the last week, worse with exertion. PCP checked labs 06/08 and hemoglobin was 8.9 then again on the and it was 8.3. Pt was told to come here today for repeat hgb. . kb
--- NOTE | 2024-06-17 18:25 | ER ---
Nurse's Notes [facility] Name: John Green Age: 63 yrs Sex: Male : 1960 Arrival Date: 06/17/2024 Time: 15:11 Bed DX4 Private MD: Diagnosis: Anemia, unspecified Presentation: 06/17 15:54 Chief complaint: Patient states: Sent to the ER by GI doctor to have HGB levels cm10 checked. Pt had labs done on 06/08 and HGB was 8.9 on HGB was 8.3. Pt reports intermittent dizziness and generalized weakness. 15:55 Coronavirus screen: Client denies travel out of the [place] in the last 14 days. Ebola cm10 Screen: Patient denies travel to an Ebola-affected area in the 21 days before illness onset. Initial Sepsis Screen: Does the patient meet any 2 criteria? No. Patient's initial sepsis screen is negative. Does the patient have a suspected source of infection? No. Patient's initial sepsis screen is negative. Risk Assessment: Do you want to hurt yourself or someone else? Patient reports no desire to harm self or others. Onset of symptoms was June 17, 2024. 15:55 Method Of Arrival: Ambulatory cm10 15:55 Acuity: GAURAV 3 cm10 Triage Assessment: 15:56 General: Appears in no apparent distress. comfortable, Behavior is calm, cooperative. cm10 Pain: Denies pain. Neuro: No deficits noted. Level of Consciousness is awake, alert, obeys commands, Oriented to person, place, time, situation, Appropriate for age Reports dizziness. Respiratory: No deficits noted. Airway is patent Respiratory effort is even, unlabored, Respiratory pattern is regular, symmetrical. Historical: - Allergies: 15:56 No Known Allergies; cm10 - PMHx: 15:56 Alcoholic Cirrhosis; depressive disorder; HEP C; Hypertensive disorder; cm10 - Immunization history:: Adult Immunizations up to date. - Infectious Disease History:: Denies. - Social history:: Smoking status: Patient reports the use of cigarette tobacco products, smokes one pack cigarettes per day. Screenin:58 [facility] ED Fall Risk Assessment (Adult) History of falling in the last 3 months, ll1 including since admission No falls in past 3 months (0 pts) Confusion or Disorientation No (0 pts) Intoxicated or Sedated No (0 pts) Impaired Gait No (0 pts) Mobility Assist Device Used No (0 pt) Altered Elimination No (0 pt) Score/Fall Risk Level 0 - 2 = Low Risk Maintained a safe environment, Hourly rounding (assess needs \T\ fall precautionary measures) done. Abuse screen: Denies threats or abuse. Nutritional screening: No deficits noted. Tuberculosis screening: No symptoms or risk factors identified. Assessment: 18:59 Reassessment: No changes from previously documented assessment. Patient and/or family ll1 updated on plan of care and expected duration. Pain level reassessed. Patient is alert, oriented x 3, equal unlabored respirations, skin warm/dry/pink. Vital Signs: 15:55 BP 132 / 77; Pulse 68; Resp 15; Temp 98; Pulse Ox 100% on R/A; Weight 79.38 kg; Height cm10 5 ft. 9 in. ; Pain 0/10; 15:55 Body Mass Index 25.84 (79.38 kg, 175.26 cm) cm10 15:55 Pain Scale: Adult cm10 ED Course: 15:13 Patient arrived in ED. mr 15:16 Brissa Sahni, [facility] kb 15:16 Be Hobbs MD is Attending Physician. kb 15:56 Triage completed. cm10 15:56 Arm band placed on left wrist. Patient placed in waiting room. cm10 17:49 CBC with Diff Sent. bc6 17:49 CMP Sent. bc6 17:50 Initial lab(s) drawn, by wa, sent to lab. Inserted saline lock: 20 gauge in left bc6 antecubital area, using aseptic technique. Blood collected. Flushed with 10 mL NS. 18:58 Patient has correct armband on for positive identification. Provided Education on: ll1 return to ED as needed. 18:58 No provider procedures requiring assistance completed. IV discontinued, intact, ll1 bleeding controlled, No redness/swelling at site. Pressure dressing applied. Administered Medications: 18:55 Not Given (Patient Refused): ns 0.9% 1000 ml IV at 1 bolus Per protocol; to be given as ll1 a bolus over 60 minutes Medication: 18:59 VIS not applicable for this client. ll1 Outcome: 18:24 Discharge ordered by . kb 18:58 Discharged to home ambulatory, ll1 18:58 Condition: stable 18:58 Discharge instructions given to patient, Instructed on discharge instructions, follow up and referral plans. Demonstrated understanding of instructions, follow-up care, 18:59 Patient left the ED. ll1 Signatures: Brissa Sahni, STATION CASHIER-C STATION CASHIER-Ariadna Lucero, Reg Reg mr GarretSis, RN RN ll1 Jayashree Alfonso Clarissa, RN RN cm10
[2024-06-17] MEDS ORDERED: NA CHLORIDE 0.9% 0 ML ONE (18:52)
[2024-06-17 19:19] VITALS: BP 132/77; TEMP 98; O2SAT 100
== END 2024-06-17 18:59 | disposition home or self-care (01) ==
LOC: ER 15:11
DX: D64.9 Anemia, unspecified (principal); K70.30 Alcoholic cirrhosis of liver without ascites; F17.210 Nicotine dependence, cigarettes, uncomplicated
CPT/HCPCS: 36415; 80053; 85025; J7030